=== PATIENT | female | born 1965 | race Caucasian/White ===

== ENCOUNTER 2017-01-26 07:52 | Observation (INO) | payer OTHER ==
[~2017-01-26 07:52] MED LIST: Lactated Ringers 1,000 ML IV SCH; Lidocaine 1%/Sod Bicarbonate in NS 8.4% 1 ML Syringe IV PRN; Lidocaine 1%/Sod Bicarbonate in NS 8.4% 1 ML Syringe PRN; Sodium Chloride 0.9% 10 ML Syringe FLUSH PRN
[2017-01-26] MEDS ORDERED: ceFAZolin 1 GM Vial ONE ×3 (07:58→08:46)
[2017-01-26] MEDS ORDERED: fentaNYL 250 MCG/5 ML SDV ONE (07:58)
[2017-01-26] MEDS ORDERED: HYDROmorphone 1 MG/ML Syringe ONE ×2 (07:58→09:43)
[2017-01-26] MEDS ORDERED: Propofol 200 MG/20 ML SDV ONE (07:58)
[2017-01-26] MEDS ORDERED: Ondansetron 4 MG/2 ML SDV ONE (07:58)
[2017-01-26] MEDS ORDERED: Rocuronium 50 MG/5 ML Vial ONE (07:58)
[2017-01-26] MEDS ORDERED: Midazolam 1 MG/ML 2 ML SDV ONE (07:58)
[2017-01-26] MEDS ORDERED: Lidocaine 1% with EPINEPHrine 1:100,000 20 ML MDV ONE (07:59)
[2017-01-26] MEDS ORDERED: Sodium Chloride 0.9% 50 ML SDV ONE (07:59)
[2017-01-26] MEDS ORDERED: Metoclopramide 10 MG/2 ML SDV IVPUSH PRN (08:12)
[2017-01-26] MEDS ORDERED: HYDROmorphone 0.5 MG/0.5 ML Syringe IVPUSH PRN (08:12)
[2017-01-26] MEDS ORDERED: Ondansetron 4 MG/2 ML SDV IVPUSH PRN (08:12)
[2017-01-26] MEDS ORDERED: fentaNYL 100 MCG/2 ML SDV IVPUSH PRN (08:12)
--- NOTE | 2017-01-26 08:20 | PCM.PREANE ---
Preanesthetic Assessment - Anesthesia/Transfusion/Family Hx Anesthesia History: Prior Anesthesia Without Reaction Type of Anesthesia Reaction: Unknown Family History of Anesthesia Reaction: No Type of Transfusion Reactions: Reports: Unknown - Review of Systems General: No Symptoms Pulmonary: No Symptoms Cardiovascular: No Symptoms Gastrointestinal: No symptoms Neurological: Other (back pain on occasion, ) Other: Reports: Thyroid Problems - Physical Assessment NPO Status Date: 01/25/17 NPO Status Time: 23:40 Pulse: 76 O2 Sat by Pulse Oximetry: 100 Respiratory Rate: 16 Blood Pressure: 179/98 Weight: 137.892 kg ASA Class: 2 Mental Status: Alert & Oriented x3 Airway Class: Mallampati = 2 Dentition: Reports: Normal Dentition Thyro-Mental Finger Breadths: 3 Mouth Opening Finger Breadths: 3 ROM/Head Extension: Full Lungs: Clear to auscultation, Normal respiratory effort Cardiovascular: Regular Rate, Regular Rhythm - Allergies Allergies/Adverse Reactions: Allergies Allergy/AdvReac Type Severity Reaction Status Date / Time turmeric Allergy Hives Verified 01/22/17 09:49 boswellia rainer Allergy Hives Uncoded 01/22/17 09:49 curcumin Allergy Hives Uncoded 01/22/17 09:49 - Blood Blood Available: No Product(s) Available: None - Anesthesia Plan Pre-Op Medication Ordered: None - Acknowledgements Anesthesia Type Planned: General Anesthesia Pt an Appropriate Candidate for the Planned Anesthesia: Yes Alternatives and Risks of Anesthesia Discussed w Pt/Guardian: Yes Pt/Guardian Understands and Agrees with Anesthesia Plan: Yes PreAnesthesia Questionnaire HEENT History: Reports: Impaired Vision Cardiovascular History: Reports: None Respiratory History: Reports: Other (See Below) Other Respiratory History: cough, bronchospasm, laryngitis Genitourinary History: Reports: Other (See Below) Other Genitourinary History: stress urinary incontinence [employer]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 , Other (See Below) Other OB/BYN History: breast erythema, cystocele, heavy menses, rectocele, Musculoskeletal History: Reports: None Neurological History: Reports: None Psychiatric History: Reports: None Endocrine/Metabolic History: Reports: Hypothyroidism Hematologic History: Reports: None Immunologic History: Reports: None Oncologic (Cancer) History: Reports: None Dermatologic History: Reports: Urticaria - Past Surgical History Head Surgeries/Procedures: Reports: None HEENT Surgical History: Reports: Oral Surgery GI Surgical History: Reports: Appendectomy Dermatological Surgical History: Reports: Other (See Below) - SUBSTANCE USE Smoking Status *Q: Never Smoker Recreational Drug Use History: No - HOME MEDS Home Medications: Home Meds Cetirizine [ZyrTEC] 10 mg PO DAILY 01/22/17 [History] Doxepin HCl [Doxepin] 10 mg PO BEDTIME 01/22/17 [History] Levothyroxine Sodium [Synthroid] 75 mcg PO DAILY 01/22/17 [History] Levothyroxine Sodium [Synthroid] 200 mcg PO DAILY 01/22/17 [History] Multivitamin [Multivitamins] 1 tab PO DAILY 01/22/17 [History] - CURRENT (IN HOUSE) MEDS Current Meds: Current Medications Fentanyl (Sublimaze) 50 mcg IVPUSH Q5M PRN PRN Reason: pain Hydromorphone HCl (Dilaudid) 0.5 mg IVPUSH Q15M PRN PRN Reason: Pain (severe 7-10) Stop: 01/26/17 08:28 Lactated Ringer's (Ringers, Lactated) 1,000 mls @ 125 mls/hr IV ASDIRECTED RUKHSANA Stop: 01/26/17 23:00 Lidocaine/Sodium Bicarbonate (Buffered Lidocaine 1% In Ns 8.4%) 0.25 ml .XX ONETIME PRN PRN Reason: Prior to IV Start Stop: 01/26/17 18:00 Metoclopramide HCl (Reglan) 10 mg IVPUSH ONETIME PRN PRN Reason: Nausea/Vomiting Ondansetron HCl (Zofran) 4 mg IVPUSH ONETIME PRN PRN Reason: Nausea/Vomiting Sodium Chloride (Saline Flush) 10 ml FLUSH ASDIRECTED PRN PRN Reason: Keep Vein Open Stop: 01/26/17 18:00 Discontinued Medications Cefazolin Sodium (Ancef) Confirm Administered Dose 1 gm .ROUTE .STK-MED ONE Stop: 01/26/17 07:59 Cefazolin Sodium (Ancef) Confirm Administered Dose 1 gm .ROUTE .STK-MED ONE Stop: 01/26/17 07:59 Fentanyl (Sublimaze) Confirm Administered Dose 250 mcg .ROUTE .STK-MED ONE Stop: 01/26/17 07:59 Hydromorphone HCl (Dilaudid) Confirm Administered Dose 1 mg .ROUTE .STK-MED ONE Stop: 01/26/17 07:59 Lactated Ringer's (Ringers, Lactated) 1,000 mls @ 125 mls/hr IV ASDIRECTED RUKHSANA Lactated Ringer's (Ringers, Lactated) 1,000 mls @ 125 mls/hr IV ASDIRECTED RUKHSANA Stop: 01/26/17 23:00 Lidocaine/Epinephrine (Xylocaine 1% With Epinephrine 1:100,000) Confirm Administered Dose 20 ml .ROUTE .STK-MED ONE Stop: 01/26/17 08:00 Lidocaine/Sodium Bicarbonate (Buffered Lidocaine 1% In Ns 8.4%) 0.25 ml IV ONETIME PRN PRN Reason: Prior to IV Start Midazolam HCl (Versed 1 Mg/Ml) Confirm Administered Dose 2 mg .ROUTE .STK-MED ONE Stop: 01/26/17 07:59 Ondansetron HCl (Zofran) Confirm Administered Dose 4 mg .ROUTE .STK-MED ONE Stop: 01/26/17 07:59 Propofol (Diprivan 20 Ml) Confirm Administered Dose 200 mg .ROUTE .STK-MED ONE Stop: 01/26/17 07:59 Rocuronium [place] (Zemuron) Confirm Administered Dose 50 mg .ROUTE .STK-MED ONE Stop: 01/26/17 07:59 Sodium Chloride (Saline Flush) 10 ml FLUSH ASDIRECTED PRN PRN Reason: Keep Vein Open Sodium Chloride (Normal Saline) Confirm Administered Dose 50 ml .ROUTE .STK-MED ONE Stop: 01/26/17 08:00
[2017-01-26] MEDS ORDERED: Lactated Ringers 1,000 ML ONE ×2 (09:34→10:33)
[2017-01-26] MEDS ORDERED: Neostigmine Methylsulfate 1 MG/ML 5 ML Syringe ONE (10:33)
--- NOTE | 2017-01-26 11:14 | PCM.OPNOTE ---
- General Post-Op/Procedure Note Date of Surgery/Procedure: 01/26/17 Operative Procedure(s): Total vaginal hysterectomy, bilateral salpingo- oophorectomy 24867, mid urethral sling 06567 (anterior, posterior colporrhaphy not performed.) Pre Op Diagnosis: Cystocele, heavy menses, rectocele, stress, urinary incontinence Post-Op Diagnosis: Same Anesthesia Technique: General ET tube Primary Surgeon: Will Monteiro Secondary Surgeon: Ziyad Cardona Anesthesia Provider: Tamie Yee Police Patrol Officer: Silvana Sanderson (CRNAs) Fluid Replacement, Intraop: 2,200 Output, Urine Amount: 100 EBL in mLs: 500 Drain/Tube Comments:: None Complications: None Condition: Good Free Text/Narrative:: Patient was transported to the operating room. #1, placed under general anesthesia with endotracheal intubation. Low dorsal lithotomy position, prepared and draped in sterile fashion. Examination under anesthesia revealed uterus. Be upper limits normal size. No adnexal masses. Patient, prepared and draped in sterile fashion. SCDs in place and functioning. Prior surgery. She received 3 g of Ancef prior to surgery. The cervix was grasped, and injected with 0.25% lidocaine with epinephrine in multiple confluent areas massage and with open 4 x 4, and circumscribing incision made. Posterior colpotomy was performed without difficulty. Long, weighted speculum placed, and , using the LigaSure crossclamping the uterosacral, cardinal complex, activating , and, incising, bilaterally. Proceeding cephalad. Again, crossclamping, incising, after activation LigaSure enter corporotomy was then performed, and proceeding in pedicle fashion cephalad. The uterine vessel to her and a ligament, crossclamped, activated, LigaSure, and incised, there was one area of arterial bleeding on the left and right side. Suture-ligated with figure-of- eight suture utilizing #1 Vicryl both tubes and ovaries appeared normal. The tubes were grasped, retracted towards the incision and cross clamped with Logan clamp, and the infundibulopelvic ligament, suture-ligated with #1 Vicryl. The left side. Same procedure carried on the right side. Reinspection for bleeding, showed one small arterial bleeder on the left side, which was again, suture ligated with #1 Vicryl interrupted suture. The posterior vaginal cuff was then closed with running, locking suture of 0 Monocryl and pursestring suture placed after cutting. The tag sutures on the infundibulopelvic ligament, and, closing the peritoneum. There was no active bleeding, and then, posterior vaginal cuff were, approximate with 0 Monocryl. After completion hysterectomy, there was minimal cystocele and rectocele, and it was felt by me and Dr. Cardona. Be in the patient's best managed to not attempt, cystocele and rectocele repair. At this time, and only, mid urethral sling was performed, grasping, approximate 1 cm from the external recently, has , and, making, approximate 2.5 cm incision. After injecting 5 mL of 0.25% lidocaine with epinephrine for tissue dissection, as well as, postoperative pain management, undermining the vaginal mucosa to the area of the obturator foramen injecting 2 cc in each area and making a small incision. After undermining the left and right side, to the obturator foramen, the urethral sling needles were placed first on the left side, grasping, the sling, and retracting through the incision. Left, and then, to the patient's right side, incision and retracting. The sling utilizing a #15, Hegar dilator to position. The sling. There was no through and through incision into the vagina from the sling, needles . The incision was closed with running suture. 3-0 Monocryl. The 2 obturator area. Incisions were closed with subcuticular 3-0 Monocryl and Dermabond applied. Sponge, needle, pack, and splint sharp count correct, x2. 240 mL water instilled into the bladder to anesthesiology physician assistant. Patient feeling, urgency, and need to avoid. Patient was transported post anesthesia care unit in satisfactory condition. No blood transfusions were required. Talked with the and son concerning the findings at surgery and the fact that the antrum, posterior colporrhaphy was not performed. After decision made at surgery by myself and Dr. Cardona. Patient [place] 7 [place] and recommended that they stayed at a local hot tonight or other than 5 home in case. Patient history turned to the hospital for problems, and a lid room overnight. Patient has to stay overnight because of inability to void or other problems or complications
--- NOTE | 2017-01-26 11:15 | PCM.POSTAN ---
POST ANESTHESIA ASSESSMENT - MENTAL STATUS Mental Status: oriented (Arousable), somnolent - VITAL SIGNS Pulse Rate: 80 SaO2: 95 Resp Rate: 13 Blood Pressure: 119/72 Temperature: 36.8 C - RESPIRATORY Respiratory Status: respiratory rate WNL, airway patent, O2 saturation stable, supplemental oxygen - CARDIOVASCULAR CV Status: pulse rate WNL, blood pressure stable - GASTROINTESTINAL GI Status: no symptoms - PAIN Pain Score: 0 - POST OP HYDRATION Hydration Status: adequate & stable
--- NOTE | 2017-01-26 16:29 | PCM.SN ---
- Free Text/Narrative Note: DOS PM round Afebrile, awake, alert, unable to void on her own, has been placed on Urecholine 10 mg hourly x5 doses then q6h and home Rx for same send electronically to [id number]. No abdominal pain, no vaginal bleeding, no leg cramps. If unable to void on own will keep overnight. If she is able to void and no more than 150 ml residual will leave hospital and stay at local hotel and return to ER if needed for in and out cath. CBC in AM if patient stays overnight.
[2017-01-26] MEDS ORDERED: Ibuprofen 600 MG Tab PO PRN ×2 (20:27→21:08)
[2017-01-26] MEDS ORDERED: Acetaminophen/oxyCODONE 325-5 MG Tab PO PRN (20:28)
[2017-01-26] MEDS ORDERED: Doxepin 10 MG Cap PO SCH (21:00)
[2017-01-27] MEDS ORDERED: Levothyroxine 75 MCG Tab PO SCH (06:00)
--- NOTE | 2017-01-27 07:10 | PCM.DCSUM1 ---
Discharge Summary - Hospital Course Free Text/Narrative:: [facility] Post-Op/Procedure Note Patient Name: SANG MARIE Date of : 67 Patient Status: Surgical Day Care Attending Provider: Will Monteiro Date: 01/26/17 11:06 Initialization Date: 01/26/17 11:06 - General Post-Op/Procedure Note Date of Surgery/Procedure: 01/26/17 Operative Procedure(s): Total vaginal hysterectomy, bilateral salpingo- oophorectomy 17668, mid urethral sling 05140 (anterior, posterior colporrhaphy not performed.) Pre Op Diagnosis: Cystocele, heavy menses, rectocele, stress, urinary incontinence Post-Op Diagnosis: Same Anesthesia Technique: General ET tube Primary Surgeon: Will Monteiro Secondary Surgeon: Ziyad Cardona Anesthesia Provider: Tamie Yee Rn Triage: Silvana Sanderson (CRNAs) Fluid Replacement, Intraop: 2,200 Output, Urine Amount: 100 EBL in mLs: 500 Drain/Tube Comments:: None Complications: None Condition: Good Free Text/Narrative:: Patient was transported to the operating room. #1, placed under general anesthesia with endotracheal intubation. Low dorsal lithotomy position, prepared and draped in sterile fashion. Examination under anesthesia revealed uterus. Be upper limits normal size. No adnexal masses. Patient, prepared and draped in sterile fashion. SCDs in place and functioning. Prior surgery. She received 3 g of Ancef prior to surgery. The cervix was grasped, and injected with 0.25% lidocaine with epinephrine in multiple confluent areas massage and with open 4 x 4, and circumscribing incision made. Posterior colpotomy was performed without difficulty. Long, weighted speculum placed, and , using the LigaSure crossclamping the uterosacral, cardinal complex, activating , and, incising, bilaterally. Proceeding cephalad. Again, crossclamping, incising, after activation LigaSure enter corporotomy was then performed, and proceeding in pedicle fashion cephalad. The uterine vessel to her and a ligament, crossclamped, activated, LigaSure, and incised, there was one area of arterial bleeding on the left and right side. Suture-ligated with figure-of- eight suture utilizing #1 Vicryl both tubes and ovaries appeared normal. The tubes were grasped, retracted towards the incision and cross clamped with Logan clamp, and the infundibulopelvic ligament, suture-ligated with #1 Vicryl. The left side. Same procedure carried on the right side. Reinspection for bleeding, showed one small arterial bleeder on the left side, which was again, suture ligated with #1 Vicryl interrupted suture. The posterior vaginal cuff was then closed with running, locking suture of 0 Monocryl and pursestring suture placed after cutting. The tag sutures on the infundibulopelvic ligament, and, closing the peritoneum. There was no active bleeding, and then, posterior vaginal cuff were, approximate with 0 Monocryl. After completion hysterectomy, there was minimal cystocele and rectocele, and it was felt by me and Dr. Cardona. Be in the patient's best managed to not attempt, cystocele and rectocele repair. At this time, and only, mid urethral sling was performed, grasping, approximate 1 cm from the external recently, has , and, making, approximate 2.5 cm incision. After injecting 5 mL of 0.25% lidocaine with epinephrine for tissue dissection, as well as, postoperative pain management, undermining the vaginal mucosa to the area of the obturator foramen injecting 2 cc in each area and making a small incision. After undermining the left and right side, to the obturator foramen, the urethral sling needles were placed first on the left side, grasping, the sling, and retracting through the incision. Left, and then, to the patient's right side, incision and retracting. The sling utilizing a #15, Hegar dilator to position. The sling. There was no through and through incision into the vagina from the sling, needles . The incision was closed with running suture. 3-0 Monocryl. The 2 obturator area. Incisions were closed with subcuticular 3-0 Monocryl and Dermabond applied. Sponge, needle, pack, and splint sharp count correct, x2. 240 mL water instilled into the bladder to assistant clinical director. Patient feeling, urgency, and need to avoid. Patient was transported post anesthesia care unit in satisfactory condition. No blood transfusions were required. Talked with the and son concerning the findings at surgery and the fact that the antrum, posterior colporrhaphy was not performed. After decision made at surgery by myself and Dr. Cardona. Patient lives 7 miles away and recommended that they stayed at a local hotel tonight or other than 5 home in case. Patient history turned to the hospital for problems, and a lid room overnight. Patient has to stay overnight because of inability to void or other problems or complications Acute urinary retention treated with Urecholine hourly x5 then po q6h and in and out cath. Voiding now and emptying bladder. Continue urecholine 10 mg q6h x7 days. Call clinic or come to ER if any problem HPI Initial Comments: [facility] Post-Op/Procedure Note Patient Name: SANG MARIE Date of : 67 Patient Status: Surgical Day Care Attending Provider: Will Monteiro Date: 01/26/17 11:06 Initialization Date: 01/26/17 11:06 - General Post-Op/Procedure Note Date of Surgery/Procedure: 01/26/17 Operative Procedure(s): Total vaginal hysterectomy, bilateral salpingo- oophorectomy 57650, mid urethral sling 22772 (anterior, posterior colporrhaphy not performed.) Pre Op Diagnosis: Cystocele, heavy menses, rectocele, stress, urinary incontinence Post-Op Diagnosis: Same Anesthesia Technique: General ET tube Primary Surgeon: Will Monteiro Secondary Surgeon: Ziyad Cardona Anesthesia Provider: Tamie Yee Rn Triage: Silvana Sanderson (CRNAs) Fluid Replacement, Intraop: 2,200 Output, Urine Amount: 100 EBL in mLs: 500 Drain/Tube Comments:: None Complications: None Condition: Good Free Text/Narrative:: Patient was transported to the operating room. #1, placed under general anesthesia with endotracheal intubation. Low dorsal lithotomy position, prepared and draped in sterile fashion. Examination under anesthesia revealed uterus. Be upper limits normal size. No adnexal masses. Patient, prepared and draped in sterile fashion. SCDs in place and functioning. Prior surgery. She received 3 g of Ancef prior to surgery. The cervix was grasped, and injected with 0.25% lidocaine with epinephrine in multiple confluent areas massage and with open 4 x 4, and circumscribing incision made. Posterior colpotomy was performed without difficulty. Long, weighted speculum placed, and , using the LigaSure crossclamping the uterosacral, cardinal complex, activating , and, incising, bilaterally. Proceeding cephalad. Again, crossclamping, incising, after activation LigaSure enter corporotomy was then performed, and proceeding in pedicle fashion cephalad. The uterine vessel to her and a ligament, crossclamped, activated, LigaSure, and incised, there was one area of arterial bleeding on the left and right side. Suture-ligated with figure-of- eight suture utilizing #1 Vicryl both tubes and ovaries appeared normal. The tubes were grasped, retracted towards the incision and cross clamped with Logan clamp, and the infundibulopelvic ligament, suture-ligated with #1 Vicryl. The left side. Same procedure carried on the right side. Reinspection for bleeding, showed one small arterial bleeder on the left side, which was again, suture ligated with #1 Vicryl interrupted suture. The posterior vaginal cuff was then closed with running, locking suture of 0 Monocryl and pursestring suture placed after cutting. The tag sutures on the infundibulopelvic ligament, and, closing the peritoneum. There was no active bleeding, and then, posterior vaginal cuff were, approximate with 0 Monocryl. After completion hysterectomy, there was minimal cystocele and rectocele, and it was felt by me and Dr. Cardona. Be in the patient's best managed to not attempt, cystocele and rectocele repair. At this time, and only, mid urethral sling was performed, grasping, approximate 1 cm from the external recently, has , and, making, approximate 2.5 cm incision. After injecting 5 mL of 0.25% lidocaine with epinephrine for tissue dissection, as well as, postoperative pain management, undermining the vaginal mucosa to the area of the obturator foramen injecting 2 cc in each area and making a small incision. After undermining the left and right side, to the obturator foramen, the urethral sling needles were placed first on the left side, grasping, the sling, and retracting through the incision. Left, and then, to the patient's right side, incision and retracting. The sling utilizing a #15, Hegar dilator to position. The sling. There was no through and through incision into the vagina from the sling, needles . The incision was closed with running suture. 3-0 Monocryl. The 2 obturator area. Incisions were closed with subcuticular 3-0 Monocryl and Dermabond applied. Sponge, needle, pack, and splint sharp count correct, x2. 240 mL water instilled into the bladder to assistant clinical director. Patient feeling, urgency, and need to avoid. Patient was transported post anesthesia care unit in satisfactory condition. No blood transfusions were required. Talked with the and son concerning the findings at surgery and the fact that the antrum, posterior colporrhaphy was not performed. After decision made at surgery by myself and Dr. Cardona. Patient lives 7 miles away and recommended that they stayed at a local hot tonight or other than 5 home in case. Patient history turned to the hospital for problems, and a lid room overnight. Patient has to stay overnight because of inability to void or other problems or complications Acute urinary retention treated with Urecholine hourly x5 then po q6h and in and out cath. Voiding now and emptying bladder. Continue urecholine 10 mg q6h x7 days. Call clinic or come to ER if any problem Brief History: [facility] . Post-Op/Procedure Note. Patient Name: SANG MARIE Record Number: [id number]. Date of : Patient Status: Surgical Day Care. [facility] Number: [id number]. Date: 01/26/17 11:06Initialization Date: 11:06. - General Post-Op/Procedure Note. Date of Surgery/Procedure: . Operative Procedure(s): Total vaginal hysterectomy, bilateral salpingo- oophorectomy 74837, mid urethral sling 98248 (anterior, posterior colporrhaphy not performed.). Pre Op Diagnosis: Cystocele, heavy menses, rectocele, stress, urinary incontinence. Post-Op Diagnosis: Same. Anesthesia Technique: General ET tube. Primary Surgeon: Will Monteiro. Secondary Surgeon: Ziyad Cardona. Anesthesia Provider: Tamie Yee. Rn Triage: Silvana Sanderson ( CRNAs). Fluid Replacement, Intraop: 2,200. Output, Urine Amount: 100. EBL in mLs: 500. Drain/Tube Comments:: None. Complications: None. Condition: Good. Free Text/Narrative:: Patient was transported to the operating room. #1, placed under general anesthesia with endotracheal intubation. Low dorsal lithotomy position, prepared and draped in sterile fashion. Examination under anesthesia revealed uterus. Be upper limits normal size. No adnexal masses. Patient, prepared and draped in sterile fashion. SCDs in place and functioning. Prior surgery. She received 3 g of Ancef prior to surgery. The cervix was grasped, and injected with 0.25% lidocaine with epinephrine in multiple confluent areas massage and with open 4 x 4, and circumscribing incision made. Posterior colpotomy was performed without difficulty. Long, weighted speculum placed, and, using the LigaSure crossclamping the uterosacral , cardinal complex, activating, and, incising, bilaterally. Proceeding cephalad. Again, crossclamping, incising, after activation LigaSure enter corporotomy was then performed, and proceeding in pedicle fashion cephalad. The uterine vessel to her and a ligament, crossclamped, activated, LigaSure, and incised, there was one area of arterial bleeding on the left and right side. Suture-ligated with [id number]-[id number] suture utilizing #1 Vicryl both tubes and ovaries appeared normal. The tubes were grasped, retracted towards the incision and cross clamped with Logan clamp, and the infundibulopelvic ligament, suture-ligated with #1 Vicryl. The left side. Same procedure carried on the right side. Reinspection for bleeding, showed one small arterial bleeder on the left side, which was again, suture ligated with #1 Vicryl interrupted suture. The posterior vaginal cuff was then closed with running, locking suture of 0 Monocryl and pursestring suture placed after cutting. The tag sutures on the infundibulopelvic ligament, and, closing the peritoneum. There was no active bleeding, and then, posterior vaginal cuff were , approximate with 0 Monocryl. After completion hysterectomy, there was minimal cystocele and rectocele, and it was felt by me and Dr. Cardona. Be in the patient's best managed to not attempt, cystocele and rectocele repair. At this time, and only, mid urethral sling was performed, grasping, approximate 1 cm from the external recently, has, and, making, approximate 2.5 cm incision. After injecting 5 mL of 0.25% lidocaine with epinephrine for tissue dissection, as well as, postoperative pain management, undermining the vaginal mucosa to the area of the obturator foramen injecting 2 cc in each area and making a small incision. After undermining the left and right side, to the obturator foramen, the urethral sling needles were placed first on the left side, grasping , the sling, and retracting through the incision. Left, and then, to the patient's right side, incision and retracting. The sling utilizing a #15, Hegar dilator to position. The sling. There was no through and through incision into the vagina from the sling, needles . The incision was closed with running suture. 3-0 Monocryl. The 2 obturator area. Incisions were closed with subcuticular 3-0 Monocryl and Dermabond applied. Sponge, needle, pack, and splint sharp count correct, x2. 240 mL water instilled into the bladder to assistant clinical director. Patient feeling, urgency, and need to avoid. Patient was transported post anesthesia care unit in satisfactory condition. No blood transfusions were required. Talked with the and son concerning the findings at surgery and the fact that the antrum, posterior colporrhaphy was not performed. After decision made at surgery by myself and Dr. Cardona. Patient lives 7 miles away and recommended that they stayed at a local [facility] or other than [facility] in case. Patient history turned to the hospital for problems, and a lid room overnight. Patient has to stay overnight because of inability to void or other problems or complications. Acute urinary retention treated with Urecholine hourly x5 then po q6h and in and out cath. Voiding now and emptying bladder. Continue urecholine 10 mg q6h x7 days. Call clinic or come to ER if any problem - Discharge Data Discharge Date: 01/27/17 Discharge Disposition: Home, Self-Care 01 Condition: Good - Discharge Diagnosis/Problem(s) (1) Cystocele, midline SNOMED Code(s): 416955482 ICD Code: N81.11 - CYSTOCELE, MIDLINE Status: Acute Current Visit: Yes (2) Excessive and frequent menstruation SNOMED Code(s): 765295773 ICD Code: N92.0 - EXCESSIVE AND FREQUENT MENSTRUATION WITH REGULAR CYCLE Status: Acute Current Visit: Yes (3) Rectocele SNOMED Code(s): 206231336 ICD Code: N81.6 - RECTOCELE Status: Acute Current Visit: Yes (4) Female stress incontinence SNOMED Code(s): 11059824 ICD Code: N39.3 - STRESS INCONTINENCE (FEMALE) (MALE) Status: Acute Current Visit: Yes - Patient Summary/Data Operative Procedure(s) Performed: Total vaginal hysterectomy, bilateral salpingo -oophorectomy 00714, mid urethral sling 07986 (anterior, posterior colporrhaphy not performed.) Complications: acute urinary retention post op Consults: none Hospital Course: uneventful - Patient Instructions Diet: Heart Healthy Diet Driving: Do Not Drive (For 4 weeks) Showering/Bathing: May Shower, No Tub Bathing/Swimming (For 6 weeks) Wound/Incision Care: Keep Operative Site/Wound Site Clean and Dry Notify Provider of: Fever, Increased Pain, Swelling and Redness, Drainage, Nausea and/or Vomiting - Discharge Plan Prescriptions/Med Rec: Bethanechol Chloride [Urecholine] 10 mg PO QID #30 tablet Ibuprofen [Motrin] 600 mg PO Q6H #50 tablet oxyCODONE HCl/Acetaminophen [Percocet 5-325 mg Tablet] 1 - 2 each PO Q6H #30 tablet Home Medications: Home Meds Cetirizine [ZyrTEC] 10 mg PO DAILY 01/22/17 [History] Doxepin HCl [Doxepin] 10 mg PO BEDTIME 01/22/17 [History] Levothyroxine Sodium [Synthroid] 75 mcg PO DAILY 01/22/17 [History] Levothyroxine Sodium [Synthroid] 200 mcg PO DAILY 01/22/17 [History] Multivitamin [Multivitamins] 1 tab PO DAILY 01/22/17 [History] Bethanechol Chloride [Urecholine] 10 mg PO QID #30 tablet 01/26/17 [Rx] Ibuprofen [Motrin] 600 mg PO Q6H #50 tablet 01/26/17 [Rx] oxyCODONE HCl/Acetaminophen [Percocet 5-325 mg Tablet] 1 - 2 each PO Q6H #30 tablet 01/26/17 [Rx] Patient Handouts: Urethral Vaginal Sling, Supracervical Hysterectomy, Care After Referrals: Will Monteiro MD [Physician] - (4 weeks) - Discharge Summary/Plan Comment DC Time >30 min.: No - Patient Data Vitals - Most Recent: Last Vital Signs Temp 97.2 F 01/27/17 04:00 Pulse 75 01/27/17 04:00 Resp 17 01/27/17 04:00 BP 112/72 01/27/17 04:00 Pulse Ox 100 01/27/17 04:00 Weight - Most Recent: 314 lb 3.2 oz I&O - Last 24 hours: Intake & Output 01/26/17 01/27/17 01/27/17 22:59 06:59 14:59 Intake Total 105 Output Total 500 Balance 105 -500 Lab Results - Last 24 hrs: Laboratory Results - last 24 hr 01/26/17 01/26/17 01/26/17 Range/Units 08:20 08:20 08:20 WBC 7.43 (3.98-10.04) K/mm3 RBC 4.69 (3.98-5.22) M/mm3 Hgb 14.6 (11.2-15.7) gm/L Hct 44.2 (34.1-44.9) % MCV 94.2 (79.4-94.8) fl MCH 31.1 (25.6-32.2) pg MCHC 33.0 (32.2-35.5) g/dl RDW Std Deviation 49.3 H (36.4-46.3) fL Plt Count 325 (182-369) K/mm3 MPV 10.0 (9.4-12.3) fl Neut % (Auto) 64.9 (34.0-71.1) % Lymph % (Auto) 22.5 (19.3-51.7) % Wells % (Auto) 8.5 (4.7-12.5) % Eos % (Auto) 3.5 (0.7-5.8) Baso % (Auto) 0.5 (0.1-1.2) % Neut # (Auto) 4.82 (1.56-6.13) K/mm3 Lymph # (Auto) 1.67 (1.18-3.74) K/mm3 Wells # (Auto) 0.63 H (0.24-0.36) K/mm3 Eos # (Auto) 0.26 (0.04-0.36) K/mm3 Baso # (Auto) 0.04 (0.01-0.08) K/mm3 HCG, Quant < 1.0 mIU/mL Blood Type O POSITIVE Gel Antibody Screen Negative 01/27/17 Range/Units 04:50 WBC 16.58 H (3.98-10.04) K/mm3 RBC 3.18 L (3.98-5.22) M/mm3 Hgb 9.8 L (11.2-15.7) gm/L Hct 30.7 L (34.1-44.9) % MCV 96.5 H (79.4-94.8) fl MCH 30.8 (25.6-32.2) pg MCHC 31.9 L (32.2-35.5) g/dl RDW Std Deviation 49.3 H (36.4-46.3) fL Plt Count 316 (182-369) K/mm3 MPV 10.4 (9.4-12.3) fl Neut % (Auto) (34.0-71.1) % Lymph % (Auto) (19.3-51.7) % Wells % (Auto) (4.7-12.5) % Eos % (Auto) (0.7-5.8) Baso % (Auto) (0.1-1.2) % Neut # (Auto) (1.56-6.13) K/mm3 Lymph # (Auto) (1.18-3.74) K/mm3 Wells # (Auto) (0.24-0.36) K/mm3 Eos # (Auto) (0.04-0.36) K/mm3 Baso # (Auto) (0.01-0.08) K/mm3 HCG, Quant mIU/mL Blood Type Gel Antibody Screen Med Orders - Current: Current Medications Bethanechol Chloride (Urecholine) 10 mg PO Q6HR [facility] Last Admin: 01/27/17 05:41 Dose: 10 mg Doxepin HCl (Sinequan) 10 mg PO BEDTIME [facility] Last Admin: 01/27/17 00:42 Dose: Not Given Fentanyl (Sublimaze) 50 mcg IVPUSH Q5M PRN PRN Reason: pain Ibuprofen (Motrin) 600 mg PO Q6H PRN PRN Reason: Pain Levothyroxine Sodium (Levothyroxine) 75 mcg PO ACBRK [facility] Last Admin: 01/27/17 05:41 Dose: Not Given Levothyroxine Sodium (Levothyroxine) 200 mcg PO ACBREAKFAST [facility] Last Admin: 01/27/17 05:41 Dose: Not Given Loratadine (Claritin) 10 mg PO DAILY [facility] Metoclopramide HCl (Reglan) 10 mg IVPUSH ONETIME PRN PRN Reason: Nausea/Vomiting Ondansetron HCl (Zofran) 4 mg IVPUSH ONETIME PRN PRN Reason: Nausea/Vomiting Oxycodone/Acetaminophen (Percocet 325-5 Mg) 1 tab PO Q6H PRN PRN Reason: Pain Last Admin: 01/27/17 03:00 Dose: 1 tab Discontinued Medications Bethanechol Chloride (Urecholine) 10 mg PO ONETIME [facility] Stop: 01/26/17 23:00 Last Admin: 01/26/17 15:16 Dose: 10 mg Bethanechol Chloride (Urecholine) 10 mg PO Q1H [facility] Stop: 01/26/17 18:31 Last Admin: 01/26/17 18:29 Dose: 10 mg Bethanechol Chloride (Urecholine) 10 mg PO Q6HR [facility] Cefazolin Sodium (Ancef) Confirm Administered Dose 1 gm .ROUTE .STK-MED ONE Stop: 01/26/17 07:59 Cefazolin Sodium (Ancef) Confirm Administered Dose 1 gm .ROUTE .STK-MED ONE Stop: 01/26/17 07:59 Cefazolin Sodium (Ancef) Confirm Administered Dose 1 gm .ROUTE .STK-MED ONE Stop: 01/26/17 08:47 Fentanyl (Sublimaze) Confirm Administered Dose 250 mcg .ROUTE .STK-MED ONE Stop: 01/26/17 07:59 Glycopyrrolate () Confirm Administered Dose 1 mg .ROUTE .STK-MED ONE Stop: 01/26/17 10:34 Hydromorphone HCl (Dilaudid) Confirm Administered Dose 1 mg .ROUTE .STK-MED ONE Stop: 01/26/17 07:59 Hydromorphone HCl (Dilaudid) 0.5 mg IVPUSH Q15M PRN PRN Reason: Pain (severe 7-10) Stop: 01/26/17 08:28 Hydromorphone HCl (Dilaudid) Confirm Administered Dose 1 mg .ROUTE .ST-MED ONE Stop: 01/26/17 09:44 Lactated Ringer's (Ringers, Lactated) 1,000 mls @ 125 mls/hr IV ASDIRECTED RUKHSANA Lactated Ringer's (Ringers, Lactated) 1,000 mls @ 125 mls/hr IV ASDIRECTED RUKHSANA Stop: 01/26/17 23:00 Lactated Ringer's (Ringers, Lactated) 1,000 mls @ 125 mls/hr IV ASDIRECTED RUKHSANA Stop: 01/26/17 23:00 Last Admin: 01/26/17 08:20 Dose: 125 mls/hr Lactated Ringer's (Ringers, Lactated) Confirm Administered Dose 1,000 mls @ as directed .ROUTE .[facility]-MED ONE Stop: 01/26/17 09:35 Lactated Ringer's (Ringers, Lactated) Confirm Administered Dose 1,000 mls @ as directed .ROUTE .[facility]-MED ONE Stop: 01/26/17 10:34 Ibuprofen (Motrin) 600 mg PO Q6H PRN PRN Reason: Pain Lidocaine/Epinephrine (Xylocaine 1% With Epinephrine 1:100,000) Confirm Administered Dose 20 ml .ROUTE .ST-MED ONE Stop: 01/26/17 08:00 Last Admin: 01/26/17 09:25 Dose: 5 ml Lidocaine/Sodium Bicarbonate (Buffered Lidocaine 1% In Ns 8.4%) 0.25 ml IV ONETIME PRN PRN Reason: Prior to IV Start Lidocaine/Sodium Bicarbonate (Buffered Lidocaine 1% In Ns 8.4%) 0.25 ml .XX ONETIME PRN PRN Reason: Prior to IV Start Stop: 01/26/17 18:00 Last Admin: 01/26/17 08:20 Dose: 0.25 ml Midazolam HCl (Versed 1 Mg/Ml) Confirm Administered Dose 2 mg .ROUTE .ST-MED ONE Stop: 01/26/17 07:59 Neostigmine Methylsulfate (Neostigmine) Confirm Administered Dose 5 mg .ROUTE .STK-MED ONE Stop: 01/26/17 10:34 Ondansetron HCl (Zofran) Confirm Administered Dose 4 mg .ROUTE .STK-MED ONE Stop: 01/26/17 07:59 Propofol (Diprivan 20 Ml) Confirm Administered Dose 200 mg .ROUTE .STK-MED ONE Stop: 01/26/17 07:59 Rocuronium [place] (Zemuron) Confirm Administered Dose 50 mg .ROUTE .STK-MED ONE Stop: 01/26/17 07:59 Sodium Chloride (Saline Flush) 10 ml FLUSH ASDIRECTED PRN PRN Reason: Keep Vein Open Sodium Chloride (Saline Flush) 10 ml FLUSH ASDIRECTED PRN PRN Reason: Keep Vein Open Stop: 01/26/17 18:00 Sodium Chloride (Normal Saline) Confirm Administered Dose 50 ml .ROUTE .STK-MED ONE Stop: 01/26/17 08:00 Last Admin: 01/26/17 09:25 Dose: 15 ml *Q Meaningful Use (DIS) - VTE *Q VTE Criteria *Q: - Stroke *Q Stroke Criteria *Q: - AMI *Q AMI Criteria *Q:
[2017-01-27] MEDS ORDERED: Loratadine 10 MG Tab PO SCH (09:00)
[2017-01-27 09:17] VITALS: BP 146/87
== END 2017-01-27 09:30 | disposition home or self-care (01) ==
LOC: JD.SDS 07:52 → JD.OB 14:46 → JD.SDS 19:00 → JD.OB 01-27 09:30 → JD.SDS 01-27 09:30
PROVIDERS: ADMIT Obstetrics & Gynecology; ATTEND Obstetrics & Gynecology
PROC: 0UT97ZZ Resection of Uterus, Via Natural or Artificial Opening (ICD-10-PCS; principal; 2017-01-26)
PROC: 0UTC7ZZ Resection of Cervix, Via Natural or Artificial Opening (ICD-10-PCS; 2017-01-26)
PROC: 0UT27ZZ Resection of Bilateral Ovaries, Via Natural or Artificial Opening (ICD-10-PCS; 2017-01-26)
PROC: 0UT77ZZ Resection of Bilateral Fallopian Tubes, Via Natural or Artificial Opening (ICD-10-PCS; 2017-01-26)
PROC: 0TSD0ZZ Reposition Urethra, Open Approach (ICD-10-PCS; 2017-01-26)
DX: N87.9 Dysplasia of cervix uteri, unspecified (principal); N72 Inflammatory disease of cervix uteri; N83.312 Acquired atrophy of left ovary; N83.311 Acquired atrophy of right ovary; N83.8 Other noninflammatory disorders of ovary, fallopian tube and broad ligament; N81.6 Rectocele; N81.11 Cystocele, midline; N39.3 Stress incontinence (female) (male); E03.9 Hypothyroidism, unspecified; Z88.8 Allergy status to other drugs, medicaments and biological substances; Z91.048 Other nonmedicinal substance allergy status; Z79.899 Other long term (current) drug therapy; Z90.49 Acquired absence of other specified parts of digestive tract; Z98.890 Other specified postprocedural states
CPT/HCPCS: 36415; 57288; 58262; 84702; 85025; 85027; 86850; 86900; 86901; A9270; C1771; G0378; J0690; J1170; J2250; J2405; J2710; J3010; J7120; 00944; J2704